=== PATIENT | male | born 1990 | race Caucasian/White ===

== ENCOUNTER 2023-10-14 14:47 | Emergency (ER) | payer MEDICAID ==
[2023-10-14 15:20] VITALS: BP 133/93; O2SAT 99
[2023-10-14] MEDS ORDERED: LIDOCAINE 2% 10 ML MDV SUBQ ONE (16:35)
--- NOTE | 2023-10-14 16:35 | ED Physician Documentation ---
History of Present Illness - Stated complaint Stated Complaint: RT FINGER LAC - Chief complaint Chief Complaint: Trauma Ext - Additonal information Additional information: 33-year-old male with no pertinent past medical history presents emergency department for right pinky finger injury. Patient says that it was a crushing injury of something rubber and he took his glove off and noticed bleeding to the palmar aspect between the MIP and the DIP. He is unsure when he had his last tetanus shot he is not on blood thinners he has full range of motion to his pinky and is feeling quite confident that it is not broken. PD PAST MEDICAL HISTORY - Past Medical History Past Medical History: No Cardiovascular: None Respiratory: None Neuro: None Endocrine/Autoimmune: None GI: None : None HEENT: None Psych: None Musculoskeletal: None Derm: None - Past Surgical History Past Surgical History: No - Allergies Allergies/Adverse Reactions: Allergies Allergy/AdvReac Type Severity Reaction Status Date / Time No Known Drug Allergies Allergy Verified 10/14/23 16:46 - Social History Does the pt smoke?: No Smoking Status: Never smoker Does the pt drink ETOH?: No Does the pt have substance abuse?: No - Immunizations Immunizations are current?: No Immunizations: TDAP >10years/unknown - POLST Patient has POLST: No PD ED PE NORMAL - Vitals Vital signs reviewed: Yes - General General: Alert and oriented X 3, No acute distress, Well developed/nourished - Derm Derm: Other (laceration to right pinky on palmar aspect inebtween MIP and DIP, bleeding well controlled) - Extremities Extremities: No deformity, No tenderness to palpate, Normal ROM s pain, No edema Results - Vitals Vitals: Vital Signs - 24 hr 10/14/23 15:10 Temperature 36.8 C Heart Rate 86 Respiratory 16 Rate Blood Pressure 133/93 H O2 Saturation 99 Procedures - Laceration (location) right pinky paceration Length in cm: 6 (right pink laceration, palmar aspect over DIP) Wound type: Curved, Flap, Into subcut fat, Clean Neurovascular status: Sensory intact PD Medical Decision Making - ED course ED course: Wound inspected under direct bright light with good visualization. Area with linear laceration across soft tissue through adipose without exposure of muscle belly or tendon. No overt foreign body. Area hemostatic. Neurovascular exam congruent with above. Area extensively irrigated with sterile normal saline under pressure. Laceration repaired in simple fashion (please see procedure note for further details). Patient tolerated procedure well and neurovascular exam intact and unchanged post repair with intact distal pulses and cap refill. Cautious return precautions discussed w/ full understanding. Wound care discussed. Prompt follow up with primary care physician discussed and return for suture removal in 14 days. Departure - Departure Disposition: 01 Home, Self Care Clinical Impression: Laceration of right little finger Qualifiers: Encounter type: initial encounter Damage to nail status: without damage Foreign body presence: without foreign body Qualified Code(s): S61.216A - Laceration without foreign body of right little finger without damage to nail, initial encounter Instructions: ED Laceration Hand, ED Laceration Sure Close Comments: Come back for any signs of infection which would include: Redness, swelling, drainage, increased pain, or fevers. You can wash it soap and water. Keep it covered and moist with bacitracin ointment which is available over the counter; avoid neosporin. Follow-up with your physician in 14 days for suture removal. Forms: PCP List Discharge Date/Time: 10/14/23 17:24
[2023-10-14] MEDS: LIDOCAINE-MPF 2% 5 ML VIAL SUBQ ONE (16:45)
[2023-10-14] MEDS: TETANUS/DIPHTHERIA/PERTUSSIS 0.5 ML SYRINGE IM ONE (17:19)
[2023-10-14] MEDS: BACITRACIN ZINC OINT 1 PACKET TOP STA (17:20)
[2023-10-14] MEDS: ACETAMINOPHEN 500 MG TABLET PO STA (17:20)
== END 2023-10-14 17:24 | disposition home or self-care (01) ==
LOC: ED 14:47
DX: S61.216A Laceration without foreign body of right little finger without damage to nail, initial encounter (principal); W20.8XXA Other cause of strike by thrown, projected or falling object, initial encounter
CPT/HCPCS: 12002; 90471; 90715; 99283; A9270